=== PATIENT | male | born 1950 | race Caucasian/White ===

== ENCOUNTER 2017-01-22 16:28 | Emergency (ER) | payer OTHER, MEDICARE ==
[2017-01-22] MEDS ORDERED: IBUPROFEN 600 MG TABLET (FP) PO ONE ×2 (16:39→16:45)
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
[2017-01-22 16:45] VITALS: BP 123/74; PULSE 94; TEMP 98.1; BMI 22.3
== END 2017-01-22 18:25 | disposition home or self-care (01) ==
LOC: FER 16:28
PROC: 2W3LX1Z Immobilization of Right Lower Extremity using Splint (ICD-10-PCS; principal; 2017-01-22)
DX: S82.892A Other fracture of left lower leg, initial encounter for closed fracture (principal); W10.9XXA Fall (on) (from) unspecified stairs and steps, initial encounter; Y93.89 Activity, other specified; Y92.9 Unspecified place or not applicable; Z89.512 Acquired absence of left leg below knee; E78.00 Pure hypercholesterolemia, unspecified; Z96.641 Presence of right artificial hip joint
CPT/HCPCS: 29515; 73610-TC-RT; 99282-25

== ENCOUNTER 2021-07-23 07:08 | Emergency (ER) | payer OTHER, MEDICARE ==
[2021-07-23 07:19] VITALS: BP 194/76; PULSE 84; TEMP 98.9; BMI 23.5
== END 2021-07-23 09:09 | disposition home or self-care (01) ==
LOC: FER 07:08
DX: M54.89 Other dorsalgia (principal)
CPT/HCPCS: 71046-TC-FY; 99283-25

== ENCOUNTER 2025-01-25 05:47 | Day surgery (SDC) | payer OTHER, MEDICARE ==
[2025-01-25] MEDS ORDERED: ACETAMINOPHEN 500 MG TABLET (FP) PO PRN (09:01)
[2025-01-25] MEDS ORDERED: LIDOCAINE HCL/PF 1% SDV 5ML VIAL ONE (14:16)
[2025-01-25] MEDS: LIDOCAINE HCL 1% PRESERVATIVE FREE - 30ML VIAL IJ ONE (14:28)
[2025-01-25] MEDS: IOHEXOL 180 MG/1 ML ML IJ ONE ×2 (14:30)
[2025-01-25] MEDS: DEXAMETHASONE SOD PHOSPHATE 10 MG/1 ML VIAL IVPUSH ONE ×2 (14:31)
[2025-01-25 14:57] VITALS: BP 153/85; PULSE 63; RESP 16; TEMP 97.5
== END 2025-01-25 15:10 | disposition home or self-care (01) ==
LOC: JASU-SURG 05:47
PROVIDERS: ATTEND Pain Medicine Pain Medicine
PROC: 3E0R3BZ Introduction of Anesthetic Agent into Spinal Canal, Percutaneous Approach (ICD-10-PCS; 2025-01-25)
PROC: 3E0R33Z Introduction of Anti-inflammatory into Spinal Canal, Percutaneous Approach (ICD-10-PCS; principal; 2025-01-25 14:00)
DX: M48.061 Spinal stenosis, lumbar region without neurogenic claudication (principal); M54.16 Radiculopathy, lumbar region
CPT/HCPCS: 76000-TC-FY; J1100

== ENCOUNTER 2025-03-13 06:17 | Inpatient (IN) | payer OTHER, MEDICARE ==
[2025-03-08 17:52] VITALS: BMI 22.7
[2025-03-13] MEDS ORDERED: DEXAMETHASONE SOD PHOSPHATE 4 MG/1 ML VIAL ONE (07:21)
[2025-03-13] MEDS ORDERED: PROPOFOL 100 ML ONE ×2 (07:21→09:20)
[2025-03-13] MEDS ORDERED: MIDAZOLAM HCL 2 MG/2 ML SINGLE DOSE VIAL ONE (07:21)
[2025-03-13] MEDS ORDERED: ONDANSETRON 4 MG/2 ML VIAL ONE (07:21)
[2025-03-13] MEDS ORDERED: LIDOCAINE HCL/PF 2% SDV 5ML VIAL ONE (07:21)
[2025-03-13] MEDS ORDERED: ROCURONIUM BROMIDE 50 MG/5 ML SYRINGE ONE (07:24)
[2025-03-13] MEDS ORDERED: SUCCINYLCHOLINE CHLORIDE 200 MG/10 ML SYRINGE ONE (07:24)
[2025-03-13] MEDS ORDERED: VANCOMYCIN 1,000 MG VIAL (RESTRICTED TO ID ONLY) ONE (07:29)
[2025-03-13] MEDS ORDERED: THROMBIN (BOVINE) 20,000 UNIT VIAL TP ONE (07:29)
[2025-03-13] MEDS ORDERED: BUPIVACAINE HCL/PF 0.5% (5MG/ML) 10 ML VIAL ONE (07:30)
[2025-03-13] MEDS ORDERED: BUPIVACAINE LIPOSOME/PF (EXPAREL) 266 MG/20 ML VIAL ONE (07:30)
[2025-03-13] MEDS ORDERED: GENTAMICIN SO4 80 MG/2 ML VIAL ONE (07:44)
[2025-03-13] MEDS ORDERED: methylPREDNISolone NA SUCC 125 MG/2 ML VIAL ONE (07:45)
[2025-03-13] MEDS ORDERED: ONDANSETRON 4 MG/2 ML VIAL IVPUSH PRN ×3 (08:05→10:52)
[2025-03-13] MEDS ORDERED: LACTATED RINGERS SOLUTION 1,000 ML IV SCH ×2 (08:15→10:52)
[2025-03-13] MEDS: GENTAMICIN 80MG PREMIX BAG IVPB ONE (09:00)
[2025-03-13] MEDS: THROMBIN (BOVINE) 20,000 UNIT VIAL TP ONE (09:15)
[2025-03-13] MEDS: THROMBIN (BOVINE) 5,000 UNIT VIAL TP ONE (09:30)
[2025-03-13] MEDS: BUPIVACAINE LIPOSOME/PF (EXPAREL) 266 MG/20 ML VIAL NR ONE (09:30)
[2025-03-13] MEDS: BUPIVACAINE HCL/PF 2.5 MG/ML - 30 ML VIAL IJ ONE (09:30)
[2025-03-13] MEDS ORDERED: diphenhydrAMINE HCL 25 MG CAPSULE (FP) PO PRN (10:30)
[2025-03-13] MEDS ORDERED: morphine CARPU-JECT 4 MG/1 ML DISP.SYRIN IVPUSH PRN (10:30)
[2025-03-13] MEDS: LACTATED RINGERS SOLUTION 1,000 ML/1,000 ML INFUS.BAG IV SCH (11:08)
[2025-03-13] MEDS: CEFAZOLIN (F) 1 GM/D5W 1 GM/50 ML BAG IVPB SCH (11:15)
[2025-03-13] MEDS: DOCUSATE SODIUM 100 MG CAPSULE (FP) PO SCH (15:08)
[2025-03-13] MEDS: CEFAZOLIN 1 GM in DEXTROSE 5%-WATER - 50 ML IVPB SCH (19:01)
[2025-03-13] MEDS: ATORVASTATIN CA 20 MG TABLET (FP) PO SCH (21:26)
[2025-03-14 08:24] LABS: MCHC 34.2 g/dl (32.3-36.5); MEAN CELL VOLUME 85.9 fl (79.0-92.2); MEAN PLT VOLUME 9.5 fl (9.4-12.4); RDW 12.1 % (12.2-16.6)
[2025-03-14 08:50] LABS: CO2 28.0 mmol/L (21-32); GLUCOSE,RANDOM 100.0 mg/dL (74-106)
[2025-03-14 08:54] LABS: CREATININE 0.8 mg/dL (0.55-1.3)
[2025-03-14] MEDS: FERROUS SO4 325 MG TABLET (FP) PO SCH (10:29)
[2025-03-14] MEDS: FOLIC ACID 1 MG TABLET (FP) PO SCH (10:29)
[2025-03-14] MEDS: LOSARTAN POTASSIUM 25 MG TABLET PO SCH (10:29)
[2025-03-14] MEDS ORDERED: morphine CARPU-JECT 4 MG/1 ML DISP.SYRIN IVPUSH PRN (10:45)
[2025-03-14] MEDS: ACETAMINOPHEN 500 MG TABLET (FP) PO SCH (11:56)
[2025-03-15 10:44] LABS: MCHC 34.0 g/dl (32.3-36.5); MEAN CELL VOLUME 86.0 fl (79.0-92.2); MEAN PLT VOLUME 9.5 fl (9.4-12.4); RDW 12.3 % (12.2-16.6)
[2025-03-15 11:29] LABS: CO2 29.0 mmol/L (21-32); GLUCOSE,RANDOM 109.0 mg/dL (74-106)
[2025-03-15 11:32] LABS: CREATININE 0.7 mg/dL (0.55-1.3); SGOT/AST 28.0 U/L (15-37); SGPT/ALT 19.0 U/L (13-61); TOT PROT 5.6 g/dl (6.4-8.2)
[2025-03-15 11:35] LABS: ALK PHOS 65.0 U/L (45-117)
[2025-03-16 08:49] LABS: MCHC 33.9 g/dl (32.3-36.5); MEAN CELL VOLUME 85.8 fl (79.0-92.2); MEAN PLT VOLUME 9.6 fl (9.4-12.4); RDW 12.2 % (12.2-16.6)
[2025-03-16 09:42] LABS: CO2 25.0 mmol/L (21-32); GLUCOSE,RANDOM 92.0 mg/dL (74-106)
[2025-03-16 09:45] LABS: CREATININE 0.7 mg/dL (0.55-1.3); SGOT/AST 19.0 U/L (15-37); SGPT/ALT 18.0 U/L (13-61)
[2025-03-16 09:46] LABS: TOT PROT 5.3 g/dl (6.4-8.2)
[2025-03-16 09:47] LABS: ALK PHOS 78.0 U/L (45-117)
[2025-03-16] MEDS: AMOX TR/POT CLAV 500MG/125MG TABLETS (FP) PO SCH (17:53)
[2025-03-17 13:42] VITALS: BP 142/78; PULSE 89; RESP 20; TEMP 99
== END 2025-03-17 13:51 | disposition home health service (06) | DRG 516 ==
LOC: SUATTDRO 06:17 → JASU-SURG 06:17 → JASUSAT 06:17 → J8W 13:57 → JASUSAT 13:58 → J8W 03-14 14:30
PROVIDERS: ADMIT Family Medicine; ATTEND Family Medicine
PROC: 4A11X4G Monitoring of Peripheral Nervous Electrical Activity, Intraoperative, External Approach (ICD-10-PCS; 2025-03-13)
PROC: 01NB0ZZ Release Lumbar Nerve, Open Approach (ICD-10-PCS; principal; 2025-03-13 08:00)
DX: M48.062 Spinal stenosis, lumbar region with neurogenic claudication (principal); J98.11 Atelectasis; M54.16 Radiculopathy, lumbar region; E78.5 Hyperlipidemia, unspecified; I10 Essential (primary) hypertension; R41.0 Disorientation, unspecified; Z89.512 Acquired absence of left leg below knee
CPT/HCPCS: 36415; 71045-TC-FY; 76000-TC-FY; 80048; 80053; 83735; 85027; 86850; 86900; 86901; 94010; 94760; 97116-GP; 97161-GP; J0666